=== PATIENT | female | born 1985 | race Hispanic/Latino ===

== ENCOUNTER 2018-12-04 19:44 | Emergency (ER) | payer BC, OTHER ==
[2018-12-04] MEDS ORDERED: HYDROXYZINE HCL 25 MG TABLET ONE (20:06)
== END 2018-12-04 22:00 | disposition home or self-care (01) ==
LOC: EDH 19:44
DX: F41.1 Generalized anxiety disorder (principal); F45.8 Other somatoform disorders; J45.909 Unspecified asthma, uncomplicated; Z90.49 Acquired absence of other specified parts of digestive tract

== ENCOUNTER 2021-09-12 23:25 | Emergency (ER) | payer SELFPAY ==
[~2021-09-12] VITALS: Ht 160 cm; Wt 57.6 kg
[2021-09-13] MEDS ORDERED: PREDNISONE 20 MG TABLET PO ONE
[2021-09-13] MEDS ORDERED: PRED10 PO (00:57)
[2021-09-13] MEDS ORDERED: ALBU18HF7 IH (00:57)
[2021-09-13] MEDS ORDERED: ALBU2.5V2 IH (00:57)
[2021-09-13] MEDS ORDERED: IPRATROPIUM/ALBUTEROL SULFATE 3 ML SOLUTION IH ONE ×3 (01:00)
[2021-09-13 01:10] VITALS: BP 132/74
== END 2021-09-13 01:11 | disposition home or self-care (01) ==
LOC: EDH 23:25
DX: J45.901 Unspecified asthma with (acute) exacerbation (principal); Z79.52 Long term (current) use of systemic steroids; Z79.899 Other long term (current) drug therapy
CPT/HCPCS: 94640

== ENCOUNTER 2025-07-29 09:44 | Emergency (ER) | payer BC ==
[~2025-07-29] VITALS: Ht 160 cm; Wt 61.2 kg
[~2025-07-29 09:44] MED LIST: ALBU18HF7 IH; ALBU2.5V2 IH; PRED10 PO
[2025-07-29 10:36] LABS: IMMATURE GRANULOCYTE ABSOLUTE 0.01 K/uL (0-1); NUCLEATED RED BLOOD CELLS 0.0 % (0.0-0.19); PLATELET COUNT (AUTO) 228 K/uL (130-400); RED BLOOD CELL COUNT(AUTO) 4.79 MIL/uL (4.00-5.50); RED CELL DISTRIBUTION WIDTH 12.7 % (11.0-15.5); WHITE BLOOD COUNT (AUTO) 5.4 K/uL (4.8-10.8)
[2025-07-29 10:45] LABS: CREATININE 0.6 mg/dL (0.5-1.0); GLOMERULAR FILTR. RATE CALC 116.0 mL/min (>90); GLUCOSE,RANDOM 105.0 mg/dL (70-105); SODIUM SERUM 141.0 mmol/L (136-145); UREA NITROGEN, BLOOD 8.0 mg/dL (7-18)
[2025-07-29 10:59] LABS: RAPID GROUP A STREP negative (NEGATIVE)
--- NOTE | 2025-07-29 11:02 | NUR ---
RT CALLED AT THIS TIME FOR PENDING BREATHING TREATMENT./FILIBERTO
--- NOTE | 2025-07-29 11:06 | EKG ---
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
[2025-07-29 11:10] LABS: COVID19 (SARS ANTIGEN RAPID) PRESUMPTIVE NEGATIVE (NEGATIVE); INFLUENZA TYPE A Negative For Type A (NEGATIVE); INFLUENZA TYPE B Negative For Type B (NEGATIVE)
[2025-07-29 11:17] VITALS: PULSE 66; RESP 18
--- NOTE | 2025-07-29 11:27 | ERN ---
General Chief Complaint: Adult-Asthma Stated Complaint: ASTHMA Time Seen by MD: 10:17 Time Seen by Midlevel: 10:17 Source: patient History of Present Illness Initial Comments 40-year-old female presents to the emergency department due to asthma flare-up onset Saturday. Patient reports a dry cough, congestion, shortness of breath and chest tightness. States she uses an inhaler at home with minimal relief. Reports a medical history of HTN and asthma Allergies: Coded Allergies: No Known Drug Allergies (Unverified Allergy, Unknown, 09/12/21) Home Meds Active Scripts Fluticasone Propionate (Flonase Nasal [place]) 50 Mcg/Actuation [place], 2 SPRAY NS DAILY for 7 Days, #16 GM 0 Refills Prov:TIM CRYSTAL 07/29/25 Albuterol Sulfate (Albuterol Sulfate) 2.5 Mg/3 Ml (0.083 %) Vial.neb, 1 VIAL NEB Q4HPRN PRN for wheezing for 7 Days, #130 ML 0 Refills Prov:TIM CRYSTAL 07/29/25 Prednisone (Deltasone/Orasone) 10 Mg Tab, 40 MG PO DAILY for 7 Days, #14 TAB 0 Refills Prov:VINNY MENDOZA MD 09/13/21 Albuterol Sulfate (Ventolin Hfa) 18 Gm Hfa.aer.ad, 18 GM IH QIDP PRN for WHEEZING, #1 INHALER 1 Refill Prov:VINNY MENDOZA MD 09/13/21 Albuterol Sulfate (Albuterol Sulfate) 2.5 Mg/3 Ml Vial.neb, 2.5 MG IH QIDP PRN for WHEEZING, #30 INH 1 Refill Prov:VINNY MENDOZA MD 09/13/21 Past Medical History Past Medical History: Asthma, Bronchitis, Hypertension Past Surgical History: Appendectomy Social History Social History: Other ROS Dictation Constitutional: Negative for fever,chills, and weight loss Eyes: Negative for injury, pain,redness, and discharge ENT: Positive for congestion Negative for injury,pain or swelling Cardiovascular: Positive for chest tightness Negative for chest pain, palpitations, and edema Respiratory: Positive for dry cough, shortness of breath Negative for shortness of breath, and wheezing, Abdomen/GI: Negative for abdominal pain, nausea, vomiting, diarrhea, and constipation Back: Negative for injury and pain : Negative for painful urination, bleeding or discharge MS/Extremity: Negative for injury and deformity Skin: Negative for rash, and discoloration Neuro: Negative for headache, weakness, numbness, tingling, and seizure Psych: Negative for suicide ideation, homicidal ideation, and hallucinations Physical Exam Physical Exam Dictation General: awake, alert, no acute distress Head/Face: Normocephalic, atraumatic Eyes: PERRL, EOMI, normal conjunctiva ENT: oral cavity clear, oral mucosa moist Neck: Supple, normal range of motion Cardiovascular: RRR, normal S1/S2 Respiratory: CTAB, no respiratory distress, no rales or wheezes Skin: Warm, dry, normal turgor, no rash MS/Extremity: Pulses equal, no cyanosis, neurovascular intact, FROM Neuro: COAx4, GCS 15, strength 5/5, CN 2-12 intact, normal cerebellar exam, normal gait Psych: Normal behavior, mood, and affect normal Results Laboratory and Microbiology Lab and Micro Result Laboratory Tests Test 07/29/25 10:27 07/29/25 10:42 White Blood Count 5.4 K/uL (4.8-10.8) Red Blood Count 4.79 MIL/uL (4.00-5.50) Hemoglobin 14.7 g/dL (12.0-16.0) Hematocrit 41.8 % (36-48) Mean Corpuscular Volume 87.3 fL (79-99) Mean Corpuscular Hemoglobin 30.7 pg (27.0-33.0) Mean Corpuscular Hemoglobin Concent 35.2 g/dL (32.0-36.0) Red Cell Distribution Width 12.7 % (11.0-15.5) Platelet Count 228 K/uL (130-400) Mean Platelet Volume 10.6 fL (7.5-10.5) H Immature Granulocyte % (Auto) 0.2 % (0-1) Neutrophils (%) (Auto) 56.4 % (40.0-77.0) Lymphocytes (%) (Auto) 30.7 % (21.0-51.0) Monocytes (%) (Auto) 7.4 % (3.0-13.0) Eosinophils (%) (Auto) 4.4 % (0.0-8.0) Basophils (%) (Auto) 0.9 % (0.0-5.0) Neutrophils # (Auto) 3.1 K/uL (1.8-7.7) Lymphocytes # (Auto) 1.7 K/uL (1.0-4.8) Monocytes # (Auto) 0.4 K/uL (0.1-1.0) Eosinophils # (Auto) 0.24 K/uL (0.00-0.70) Basophils # (Auto) 0.05 K/uL (0.00-0.20) Absolute Immature Granulocyte (auto 0.01 K/uL (0-1) Nucleated Red Blood Cells 0.0 % (0.0-0.19) Sodium Level 141 mmol/L (136-145) Potassium Level 4.1 mmol/L (3.5-5.1) Chloride Level 104 mmol/L (101-111) Carbon Dioxide Level 28 mmol/L (21-32) Blood Urea Nitrogen 8 mg/dL (7-18) Creatinine 0.6 mg/dL (0.5-1.0) Glomerular Filtration Rate Calc 116 mL/min (>90) Random Glucose 105 mg/dL (70-105) Total Calcium 8.6 mg/dL (8.5-10.1) Troponin I High Sensitivity < 4 ng/L (4-50) L Influenza Type A Antigen Negative For Type A Influenza Type B Antigen Negative For Type B SARS-CoV-2 Antigen (Rapid) PRESUMPTIVE NEGATIVE Group A Streptococcus Rapid negative (NEGATIVE) Labs Reviewed?: Yes EKG/XRAY/US/CT/MRI X-RAY Comment REASON: Cough, CP ORDERING PHYSICIAN: TIM CRYSTAL [facility] PROCEDURE: CXR1VW - CHEST 1VW CHEST 1VW REASON: Cough, CP COMPARISON: None. FINDINGS: Single view of the chest was obtained. Lungs are clear. Heart size is normal. There is no pulmonary vascular congestion. Mediastinum and bony thorax appear unremarkable. IMPRESSION: 1. Normal single view chest x-ray. DICTATED BY: SHAYAN BARR MD DATE: 07/29/25 1128 MDM MDM: Differential diagnosis: Viral illness, asthma exacerbation, pneumonia Rationale: 40-year-old female presents to the emergency department due to asthma flare-up onset Saturday. Patient reports a dry cough, congestion, shortness of breath and chest tightness. States she uses an inhaler at home with minimal relief. Reports a medical history of HTN and asthma Labs obtained are within normal limits, normal troponin, negative COVID flu strep. Chest x-ray unremarkable. Patient received DuoNeb treatment in the ED and verbalized symptom improvement. Denies any current chest pain. Patient was educated on findings and diagnosis. Advised to follow up with PCP. Return to the emergency department if any worsening symptoms. Patient verbalized understanding. Patient stable for discharge. There are no social concerns with this patient. I independently interpreted the test that were performed, results were reviewed by me and considered findings on radiology if ordered. Medical management and examination interpretation discussions were had by me with other qualified healthcare professionals as indicated for the patient's care. ED Course Orders Procedure Category Date Status Time Cbc With Differential LAB 07/29/25 Complete 10:19 Basic Metabolic Panel LAB 07/29/25 Complete 10:19 Chest 1vw RAD 07/29/25 Resulted 10:19 Covid19 (Sars Antigen LAB 07/29/25 Complete Rapid) 10:19 Influenza Type A & B, LAB 07/29/25 Complete Rapid 10:19 Rapid (Group A Strep) LAB 07/29/25 Complete 10:19 12 Lead Ekg Tracing- EKG 07/29/25 Resulted Technical 10:19 Troponin I High LAB 07/29/25 Complete Sensitivity 10:19 Ipratropium/Albuterol PHA 07/29/25 Complete Neb (Duoneb) 11:00 Current Medications Medications (Trade) Dose Ordered Sig/Yuriy Route PRN Reason Start Time Stop Time Status Last Admin Dose Admin Albuterol (DUOneb) 1 udvial ONCE ONCE IH 07/29/25 11:00 07/29/25 11:01 DC 07/29/25 11:15 Vital Signs Date Time Temp Pulse Resp B/P (MAP) Pulse Ox O2 Delivery O2 Flow Rate FiO2 07/29/25 11:56 97.5 76 19 147/99 96 Room Air* 0 21 07/29/25 11:17 66 18 07/29/25 09:50 97.0 69 19 145/73 96 Room Air* 0 21 07/29/25 09:47 97.0 69 18 145/73 96 Nasal Cannula 0 DX & DISP Disposition: Discharge Departure Impression: Primary Impression: Acute asthma exacerbation Additional Impression: Viral illness Condition: Stable Scripts Fluticasone Propionate (Flonase Nasal [place]) 50 Mcg/Actuation [place] 2 SPRAY NS DAILY for 7 Days, #16 GM 0 Refills Prov: TIM CRYSTAL 07/29/25 Albuterol Sulfate (Albuterol Sulfate) 2.5 Mg/3 Ml (0.083 %) Vial.neb 1 VIAL NEB Q4HPRN PRN for wheezing for 7 Days, #130 ML 0 Refills Prov: TIM CRYSTAL 07/29/25 Additional Instructions: Discharge home. Rest. Follow up with primary care in 24 hours. Return to the ER for any acute changes or worsening symptoms. If any medications were prescribed take as directed. Okay to continue home medications unless otherwise discussed during your visit in the emergency room today. Patient was also advised to follow-up with primary care physician in 1 to 2 days for continued monitoring. Referrals: SELF,REFERRAL (PCP) I performed the substantive portion of the visit. I have reviewed and roque trejo made and approve the management plan that is documented in the notes by myself or the BRIAN. I acknowledge full responsibility for the patient's management plan. TIM CRYSTAL Jul 29, 2025 11:27
--- NOTE | 2025-07-29 11:31 | HMCIMG ---
CHEST 1VW REASON: Cough, CP COMPARISON: None. FINDINGS: Single view of the chest was obtained. Lungs are clear. Heart size is normal. There is no pulmonary vascular congestion. Mediastinum and bony thorax appear unremarkable. IMPRESSION: 1. Normal single view chest x-ray.
[2025-07-29] MEDS ORDERED: ALBU2.5V2 NEB (11:47)
[2025-07-29] MEDS ORDERED: FLUT16H NS (11:47)
[2025-07-29 11:56] VITALS: BP 147/99; PULSE 76; RESP 19; TEMP 97.6; O2SAT 96
== END 2025-07-29 12:01 | disposition home or self-care (01) ==
LOC: EDH 09:44
DX: J45.901 Unspecified asthma with (acute) exacerbation (principal); B34.9 Viral infection, unspecified; I10 Essential (primary) hypertension; Z90.49 Acquired absence of other specified parts of digestive tract; Z79.52 Long term (current) use of systemic steroids; Z20.822 Contact with and (suspected) exposure to COVID-19
CPT/HCPCS: 36415; 71045; 80048; 84484; 85025; 87426; 87804; 87880; 93005; 94640; 99284; 99285